=== PATIENT | male | born 1980 ===

== ENCOUNTER 2018-05-19 16:35 | Emergency (ER) | payer SELFPAY ==
[2018-05-19 16:44] VITALS: TEMP 98.5
[2018-05-19] MEDS ORDERED: CEPHALEXIN500 M1 PO (19:14)
[2018-05-19] MEDS ORDERED: NORCO 325 MG-51 TAB PO (19:14)
[2018-05-19 19:41] VITALS: BP 110/74; PULSE 78
== END 2018-05-19 19:40 | disposition home or self-care (01) ==
LOC: COL.ER 16:35
DX: S81.031A Puncture wound without foreign body, right knee, initial encounter (principal); Z23 Encounter for immunization; W29.4XXA Contact with nail gun, initial encounter; Y92.59 Other trade areas as the place of occurrence of the external cause
CPT/HCPCS: J0690; J1670

== ENCOUNTER → 2018-05-27 | Outpatient (CLI) | payer SELFPAY ==
[~2018-05-27] MED LIST: CEPHALEXIN500 M1 PO; NORCO 325 MG-51 TAB PO
[2018-05-27 16:36] LABS: SYNOVIAL FL. MONONUCLEAR 14.6 % (0-75); SYNOVIAL FLUID RBC 42000 /mm3 (0-0); SYNOVIAL FLUID WBC 18517 /mm3 (200-600)
[2018-05-27 16:37] LABS: SYNOVIAL FLUID APPEARANCE CLOUDY; SYNOVIAL FLUID COLOR RED
== END ==
LOC: ZCOL.LAB 16:08
PROVIDERS: Orthopaedic Surgery
DX: M25.461 Effusion, right knee (principal); M25.561 Pain in right knee